=== PATIENT | female | born 1985 | race Caucasian/White ===

== ENCOUNTER → 2019-06-03 09:00 | Outpatient (CLI) | payer OTHER, SELFPAY ==
--- NOTE | 2019-06-03 | DI.MRI.S_ITS ---
PROCEDURE: MR LUMBAR SPINE WO CON INDICATIONS: Radiculopathy, lumbar region TECHNIQUE: Noncontrast sagittal T1 spin echo and T2 fast echo, sagittal STIR, axial T1 and T2 fast spin echo through the lumbar spine. In cases with scoliosis, additional coronal T2 fast spin echo may be performed. COMPARISON: None. FINDINGS: Image quality: Excellent. Alignment and Curvature: There is normal bony alignment. Bone Marrow: Reactive endplate change is noted adjacent to the L5-S1 disc.. No acute vertebral body compression fractures. Spinal Cord: Conus medullaris terminates at the L1 level. Visualized cord demonstrates normal signal and size. Paraspinous Soft Tissues: No paravertebral masses. L1-L2: Normal appearance. L2-L3: Normal appearance. L3-L4: Normal appearance. L4-L5: Loss of disc signal. Mild, diffuse disc bulge. Mild bilateral facet hypertrophy. No central stenosis. Mild bilateral neural foraminal narrowing. No neural compression. Fissure noted in the posterior annulus. L5-S1: Loss of disc signal and height. Mild diffuse disc bulge. Mild bilateral facet hypertrophy. Postsurgical changes compatible with prior right laminotomy. No central stenosis. Mild right and moderate left neural foraminal narrowing. No neural compression. IMPRESSION: 1. Mild L4-L5 and moderate L5-S1 degenerative disc disease. 2. Mild L4-L5 and L5-S1 facet arthropathy. 3. No central stenosis. 4. Mild right and moderate left L5-S1 neural foraminal narrowing. Mild bilateral L4-L5 neural foraminal narrowing. 5. No neural compression. Dictated by: Ludy Rahman MD, PhD on 06/03/2019 at 11:10 Approved by: Ludy Rahman MD, PhD on 06/03/2019 at 11:30
== END ==
PROVIDERS: Visit Provider Family Medicine
DX: M51.16 Intervertebral disc disorders with radiculopathy, lumbar region (principal); M51.17 Intervertebral disc disorders with radiculopathy, lumbosacral region; M47.27 Other spondylosis with radiculopathy, lumbosacral region; M47.26 Other spondylosis with radiculopathy, lumbar region; M48.061 Spinal stenosis, lumbar region without neurogenic claudication; M48.07 Spinal stenosis, lumbosacral region
CPT/HCPCS: 72148